=== PATIENT | female | born 1990 | race Caucasian/White ===

== ENCOUNTER 2019-06-19 17:17 | Emergency (ER) | payer MEDICAID ==
[~2019-06-19] VITALS: Ht 157.5 cm; Wt 93.1 kg
[2019-06-19 17:25] VITALS: Ht 157.5 cm; Wt 93.1 kg
[2019-06-19 18:15] VITALS: BP 122/81
== END 2019-06-19 18:15 | disposition home or self-care (01) ==
LOC: ED 17:17
DX: J45.909 Unspecified asthma, uncomplicated (principal); R03.0 Elevated blood-pressure reading, without diagnosis of hypertension